=== PATIENT | male | born 1970 | race Asian ===

== ENCOUNTER 2023-09-09 06:48 | Emergency (ER) | payer BC, SELFPAY ==
[2023-09-09 06:58] VITALS: BP 140/88
[2023-09-09 07:14] VITALS: BMI 27.4
[2023-09-09 07:23] VITALS: BP 126/80
--- NOTE | 2023-09-09 07:29 | ED.GENMED ---
History of Present Illness
<Anamaria Marinelli PA-C - Last Filed: 09/10/23 10:06>
General
Chief Complaint: Abdominal Symptoms
Source: patient
Exam Limitations: none
Time Seen by Provider: 09/09/23 07:08
Nursing documentation reviewed up to this point in time: agreed with
History of Present Illness
History of Present Illness:
53-year-old male with no medical problems was just recently in [facility] in [facility], took a 8-hour flight on 7�20 and during the flight 8 a fish fillet of some sort. About 68 hours later the patient was having diarrhea. Initially episodes were 6 to
8/day or even more with watery nonbloody stool and abdominal cramping. The following day on 7�21 he took a 15-hour flight back to the [facility] during which he was able to make it without having diarrhea but had a lot of abdominal cramping
generalized. He has been eating a bland diet with rice, bone broth, Gatorade etc. and is able to keep it down but he still having episodes of diarrhea somewhere between 4 and 6 a day even with having taken Imodium. Patient said when he woke up
this morning he was still feeling generally not well so he decided to come in. He does not have a primary care doctor. The diarrhea is more formed now that it was. He also is here with his son who is experiencing the same symptoms. His son also
ate the same dish. His other family members did not and they are well. He has not had any recent antibiotics and no previous abdominal surgeries. He has no focal abdominal pain, just generalized and it comes and goes in waves. He is not
nauseated but does not feel like he can eat generally
Past History
<Anamaria Marinelli PA-C - Last Filed: 09/10/23 10:06>
Past History
ED Past Medical History: None
ED Past Surgical History: None
Social History
Tobacco: Non-smoker
Alcohol: None
Drug: None
Personal:
Living: with family
Employment: Employed
Review of Systems
<Anamaria Marinelli PA-C - Last Filed: 09/10/23 10:06>
Review of Systems
Allergies reviewed?: Yes
All Other Systems: Not applicable
Phy Exam
<Anamaria Marinelli PA-C - Last Filed: 09/10/23 10:06>
Physical Exam
Physical Exam:
GENERAL: Alert , in no apparent distress
EYE: pupils equal and reactive
NECK: Supple
ENT: o/p clr, mmm.
CARDIAC: Regular rate and rhythm .
LUNGS: Clear breath sounds bilaterally, no acute respiratory distress, no wheezes/rales/rhonchi
ABDOMEN: Soft, nontender abdomen, no r/g, no cvat, normal bowel sounds
NEUROLOGICAL: Alert and oriented, no focal neuro deficits
SKIN: Warm and dry, skin intact.
MUSCULOSKELETAL: No edema, well perfused.
PSYCH: Normal and appropriate interaction.
Course
<Anamaria Marinelli PA-C - Last Filed: 09/10/23 10:06>
Orders/Labs/Results
Orders:
Orders
09/09/23 07:24
0.9% Sodium Chloride 1000 ml [Nss] 1,000 ml IV BOLUS
Dicyclomine [Bentyl] 20 mg PO NOW STA
09/09/23 07:28
Complete Blood Count/With Diff Urgent
Comprehensive Metabolic Panel Urgent
Lipase Urgent
Magnesium Urgent
Manual Differential Urgent
09/09/23 09:21
STOOL [C difficile Antigen & Toxins] Urgent
OLGA Source: Feces/Stool
Specimen Description:
Date Specimen was Collected: 09/09/23
Time Specimen was Collected: 09:17
Stool Culture Urgent
OLGA Source: Feces/Stool
Specimen Description:
Date Specimen was Collected: 09/09/23
Time Specimen was Collected: 09:17
09/09/23 10:33
Add On - Microbiology Urgent
Tests Added?: campylobacter stool
Abnormal Lab Results
09/09/23
07:28
Band Neutrophils 11 H %
(0-3)
Glucose 105 H mg/dl
(70-99)
09/09/23 07:28
09/09/23 07:28
Vital Signs
Initial and Last Documented VS:
Initial Vital Signs
Temp Pulse Resp BP Pulse Ox
98.1 F 97 16 140/88 98
09/09/23 06:58 09/09/23 06:58 09/09/23 06:58 09/09/23 06:58 09/09/23 06:58
Last Documented Vital Signs
Temp Pulse Resp BP Pulse Ox
98.1 F 86 18 118/81 98
09/09/23 06:58 09/09/23 10:40 09/09/23 10:40 09/09/23 10:40 09/09/23 10:40
<Lito Gonzalez, DO - Last Filed: 09/13/23 14:06>
Orders/Labs/Results
Orders:
Orders
09/09/23 07:24
0.9% Sodium Chloride 1000 ml [Nss] 1,000 ml IV BOLUS
Dicyclomine [Bentyl] 20 mg PO NOW STA
09/09/23 07:28
Complete Blood Count/With Diff Urgent
Comprehensive Metabolic Panel Urgent
Lipase Urgent
Magnesium Urgent
Manual Differential Urgent
09/09/23 09:21
STOOL [C difficile Antigen & Toxins] Urgent
OLGA Source: Feces/Stool
Specimen Description:
Date Specimen was Collected: 09/09/23
Time Specimen was Collected: 09:17
Stool Culture Urgent
OLGA Source: Feces/Stool
Specimen Description:
Date Specimen was Collected: 09/09/23
Time Specimen was Collected: 09:17
09/09/23 10:33
Add On - Microbiology Urgent
Tests Added?: campylobacter stool
Abnormal Lab Results
09/09/23
07:28
Band Neutrophils 11 H %
(0-3)
Glucose 105 H mg/dl
(70-99)
09/09/23 07:28
09/09/23 07:28
Vital Signs
Initial and Last Documented VS:
Initial Vital Signs
Temp Pulse Resp BP Pulse Ox
98.1 F 97 16 140/88 98
09/09/23 06:58 09/09/23 06:58 09/09/23 06:58 09/09/23 06:58 09/09/23 06:58
Last Documented Vital Signs
Temp Pulse Resp BP Pulse Ox
98.1 F 86 18 118/81 98
09/09/23 06:58 09/09/23 10:40 09/09/23 10:40 09/09/23 10:40 09/09/23 10:40
<Anamaria Marinelli PA-C - Last Filed: 09/10/23 10:06>
MDM/Problems Addressed
Differential Diagnosis Includes:
travelers diarrehea, colitis
MDM/Problems Addressed:
53 y/o M
on a flight in [place] ate fish and he and his son both got diarrheal illness with crampy abd pain and 5-7 episodes daily
his episodes have improved, less frequent, more formed but pt still just not feeling well and felt that 4 days was long enough to be evaluated, doesn't have PCP
pain is minimal if any
no bloody stool
able to toelrate po
well appearing
hydrated
normal vitals
nontender abdomen
labs initially normal wbc, normal lfts, electrolytes
pt seen by ed attending
discussion regarding empiric abx had
felt that at this point, with symptoms improving (less episodes, less pain), did not feel that benefit outweight risk of empiric abx therapy for diarrhea
he did have results of bandemia after pt was discharged; this was also d/w ed attending
pt had no fevers this entire 4 days and normal wbc;
he was given good return precatuions
<Anamaria Marinelli PA-C - Last Filed: 09/10/23 10:06>
*Critical Care Note
Total Time (30-74mins, 75-104mins- exclusive of procedures): Not Applicable
ED Attending Note
<Anamaria Marinelli PA-C - Last Filed: 09/10/23 10:06>
-
Portions of this chart may have been created with voice recognition software.� Occasional wrong word or��sound alike� substitutions may have occurred due to the inherent limitations of voice recognition software.
<Lito Gonzalez DO - Last Filed: 09/13/23 14:06>
ED Attending Note
Patient seen and examined by attending physician: Yes
I performed the substantive portion of visit, reviewed & personally made and approve the management plan that is documented in note by myself or NAKIA.: Yes
I performed a history and physical exam of patient and discussed management with resident, I reviewed resident's note and agree with documented findings and plan of care.: Yes
ED Attending Note:
I evaluated bedside. Unremarkable vital signs other than mild hypertension. White count normal. Normal renal function. He was given IV fluids.
-
I evaluated bedside. Portions of this chart may have been created with voice recognition software.� Occasional wrong word or��sound alike� substitutions may have occurred due to the inherent limitations of voice recognition software.
Discharge Plan
Departure
Patient Disposition: Home (Routine Discharge)
Date of Disposition: 09/09/23
Time of Disposition: 09:30
Patient with high blood pressure during this ER visit?: No
Condition: Fair
Covid-19: Not Applicable
Discharge Problem:
Diarrhea
Instructions: Travelers' diarrhea, Diarrhea, Adult ED
Prescriptions:
New
dicyclomine 20 mg tablet
20 mg PO TID PRN (Reason: abdominal pain) Qty: 12 0RF
Referrals:
NONE,* [Family Provider] -
Activity Restrictions/Additional Instructions:
CONTINUE THE BRAT DIET (BANANAS, RICE, APPLESAUCE, TOAST), DRINK FLUIDS TO STAY HYDRATED
THE DIARRHEA SHOULD IMPROVE OVER TIME
YOU CAN TRY IMMODIUM ONLY IF IT IS SEVERE NUMBER OF EPISODES, OTHERWISE TRY TO LET IT RUN ITS COURSE
RETURN FOR: SEVERE SYMPTOMS, BLOODY DIARRHEA, FEVER, CHILLS, VOMITING, DEHYDRATION
bentyl 20 mg every 8 hours as needed for crampy pain
Interventions
Interventions:
*Risk Screen - Suicide Last Done: 09/09/23 07:14
*General Assessment Last Done: 09/09/23 07:14
*Neglect/Abuse Screening Last Done: 09/09/23 07:14
ED- Fall Risk Assessment Last Done: 09/09/23 07:14
*ED COVID-19 Vaccine History Last Done: 09/09/23 07:14
*Nursing Disposition Last Done: 09/09/23 10:40
VI-Wzcveg-Ruvhwuvsny Assessment Last Done: 09/09/23 07:14
Discharge Date and Time
Discharge Date/Time: 09/09/23 10:35
Print Language: GEORGIAN
[2023-09-09] MEDS: BENTYL 20 MG PO (07:33)
[2023-09-09] MEDS: NSS 1000 IV (07:34)
[2023-09-09 07:50] LABS: ALT (SGPT) 24 U/L (0-50); AST (SGOT) 27 U/L (17-59); Albumin 4.4 g/dl (3.5-5.0); Alkaline Phosphatase 74 U/L (38-126); Blood Urea Nitrogen 9 mg/dl (9-20); Calcium 8.9 mg/dl (8.4-10.2); Carbon Dioxide 26 mmol/L (22-30); Chloride 103 mmol/L (98-107); Estimated Creatinine Clearance 82 ml/min; Glucose 105 mg/dl (70-99); Lipase 28 U/L (23-300); Magnesium 1.8 mg/dl (1.6-2.3); Potassium 3.8 mmol/L (3.5-5.1); Sodium 138 mmol/L (135-145); Total Protein 6.9 g/dl (6.3-8.2); eGFR > 60.00
[2023-09-09 08:00] VITALS: BP 110/91
[2023-09-09 08:10] LABS: Hematocrit 42.8 % (39.0-52.0); Hemoglobin 14.6 g/dL (13.0-18.0); Mean Corp Hgb Conc. 34.1 g/dL (33.0-37.0); Mean Corpuscular Hgb 29.3 pg (27.0-31.0); Mean Corpuscular Volume 85.8 fL (80.0-94.0); Mean Platelet Volume 10.1 fL (7.4-10.4); Platelet Count 205 10^3/uL (130-400); Red Blood Cell Count 4.99 10^6/uL (4.70-6.10); Red Cell Dist. Width 12.1 % (11.5-14.5); White Blood Cell Count 5.2 10^3/uL (4.8-10.8)
[2023-09-09 09:00] VITALS: BP 110/74
[2023-09-09 09:19] LABS: Absolute Neutrophils -Man Diff 3.5 10^3/uL (1.4-6.5); Band Neutrophils 11 % (0-3)
[2023-09-09 09:20] LABS: Eosinophils 1 % (0-6); Lymphocytes 20 % (20-51); Metamyelocytes 2 % (-); Monocytes 8 % (2-9)
[2023-09-09 09:21] LABS: Segmented Neutrophils 58 % (42-75)
[2023-09-09 09:22] LABS: Normal RBC Morphology Yes; Platelets Checked Yes; Total Cells Counted 100
--- NOTE | 2023-09-09 10:39 | EDRN ---
Reviewed discharge instructions with patient. Verbalized understanding. Ambulated with steady gait to the bathroom.
[2023-09-09 10:40] VITALS: BP 118/81
== END 2023-09-09 10:35 | disposition home or self-care (01) ==
LOC: EMR 06:48
PROVIDERS: Physician Assistant; EMERGENCY PHYSICIAN Emergency Medicine
DX: R19.7 Diarrhea, unspecified (principal); I10 Essential (primary) hypertension
CPT/HCPCS: 99283; 96360; 80053; 83690; 83735; 85025; 87045; 87046; 87324; 87427; 87449